=== PATIENT | female | born 1970 | race African-American/Black ===

== ENCOUNTER 2020-11-10 17:12 | Emergency (ER) | payer OTHER ==
[~2020-11-10] VITALS: Ht 170.2 cm; Wt 134.7 kg
--- NOTE | ~2020-11-10 | EMS ---
[address] [address] EMS Patient Care Report Name: MARIA DOLORES MENDEZ Room #: DEP NANDO [place]#: [id number] Admission: 11/10/20 Attend Phys: Discharge: 11/10/20 Date of : 70 Report #: [id number] THIS REPORT FOR: //name// Report Transmitted: 11/12/2020 07:41 EMS Care Summary [facility] Incident [id number] @ 11/10/2020 16:30 Incident Location [facility] [address] [place] [address] Patient MARIA DOLORES MENDEZ Female, 50 Years 1970 Patient Address [address] [place] [address] Patient History Cardiac - Stent,Atrial Fibrillation,Ventricular Tachycardia, Patient Allergies Penicillin allergy,Sulfa,Advair, Patient Medications Nortriptyline, Gabapentin, Eliquis, Amlodipine, Chief Complaint chest pain Disposition Transported No Lights/[place] [facility] Reason Falls Transported To [facility] Narrative S51 and P51 responded to call for fall. S51 and P51 arrived on scene and made pt contact. Pt was sitting in the hallway on the stairs. Pt was A&Ox4 and GCS15. Pt stated she was walking up the stairs when she tripped and fell [address] [address] EMS Patient Care Report Name: MARIA DOLORES MENDEZ Room #: DEP NANDO [place]#: [id number] Admission: 11/10/20 Attend Phys: Discharge: 11/10/20 Date of : 70 Report #: [id number] striking her chest. Pt denies and loss of consciousness, neck or back pain. Pt stated that she had a stent placed approx 9 days ago. Pt stated that she in on blood thinners. Pt chest was assessed and showed no signs of trauma. Pt's vitals were assessed and pt was assisted to the cot under her own power. Pt was secured to the cot with seat belts and loaded into the ambulance. Pt was attached to the monitor and IV access was established with a 20g in the L.AC flushed with 10ml of NS. Pt complained of chest pain that she rated a 6/10 that was constant and sharp in nature. Pt's vitals were all stable besides her BP being elevated. Pt denied any pain anywhere else. 12 Lead showed Sinus Rhythm with no abnormalities. Pt was monitored and reassessed during transport to [place]. Pt care was transferred to [facility] in room 11 with signature. Initial Vitals @17:02GCS: 15,TX Suspected: false @16:46P: 100,GCS: 15,CO: 2,SpO2: 100,TX Suspected: false @16:44P: 96,R: 18,BP: 194/109,Pain: 6/10,GCS: 15,Glucose: 105,SpO2: 100,Revised Trauma: 12, @16:57P: 94,R: 20,BP: 174/100,Pain: 6/10,GCS: 15,CO: 6,SpO2: 97,Revised Trauma: 12, @16:39P: 110,R: 18,BP: 165/115,Pain: 6/10,GCS: 15,SpO2: 100,Revised Trauma: 12, Assessments @16:40MENTAL:Person Oriented,Time Oriented,Place Oriented,Event Oriented,SKIN:HEENT:Head/Face: No Abnormalities,Eyes: No Abnormalities,Neck/Airway: No Abnormalities,LUNG SOUNDS:General: No Abnormalities,ABDOMEN:General: No Abnormalities,PELVIS//GI:No Abnormalities,EXTREMITIES:Left Arm: No Abnormalities,Right Arm: No Abnormalities,Left Leg: No Abnormalities,Right Leg: No Abnormalities,PULSE:NEURO:No Abnormalities,@16:55MENTAL:Event Oriented,Person Oriented,Time Oriented,Place Oriented,SKIN:HEENT:Head/Face: No Abnormalities,LUNG SOUNDS:General: No Abnormalities,Left Upper: No Abnormalities,Right Upper: No Abnormalities,Left Lower: No Abnormalities,Right Lower: No Abnormalities,ABDOMEN:General: No Abnormalities,Left Upper: No Abnormalities,Right Upper: No Abnormalities,Left Lower: No Abnormalities,Right Lower: No Abnormalities,PELVIS//GI:No Abnormalities,EXTREMITIES:Left Arm: No Abnormalities,Right Arm: No Abnormalities,Left Leg: No Abnormalities,Right Leg: No Abnormalities,PULSE:NEURO:No Abnormalities, Impression Injury of Thorax (Upper Chest) Procedures @16:39ALS AssessmentResponse: UnchangedSucceeded@16:50Normal Saline (.9% NaCl) 10cc (20 ga) Site: Antecubital-LeftResponse: UnchangedSucceeded@17:0512-Lead ECG@17:0112-Lead ECG@17:0212-Lead ECG@16:473-Lead ECGResponse: UnchangedSucceeded [address] [address] EMS Patient Care Report Name: MARIA DOLORES MENDEZ Room #: [facility] ER [place]arie[place]#: [id number] Admission: 11/10/20 Attend Phys: Discharge: 11/10/20 Date of : 70 Report #: [id number] Timeline 16:28,Call Received 16:28,Psap Call 16:30,Dispatched 16:32,En Route 16:35,Initial Responder On Scene 16:35,On Scene 16:38,At Patient 16:39,BP: 165/115 M,PULSE: 110,RR: 18 R,SPO2: 100 Ox,ETCO2: ,BG: ,PAIN: 6,GCS: 15, 16:39,ALS Assessment,Response: UnchangedSucceeded, 16:44,BP: 194/109 M,PULSE: 96,RR: 18 R,SPO2: 100 Ox,ETCO2: ,B,PAIN: 6,GCS: 15, 16:46,Depart Scene 16:46,BP: / M,PULSE: 100,RR: R,SPO2: 100 Ox,ETCO2: ,BG: ,PAIN: ,GCS: 15, 16:47,3-Lead ECG,Response: UnchangedSucceeded, 16:50,Normal Saline (.9% NaCl) 10cc 20 ga Site: Antecubital-Left,Response: UnchangedSucceeded, 16:57,BP: 174/100 M,PULSE: 94,RR: 20 R,SPO2: 97 Ox,ETCO2: ,BG: ,PAIN: 6,GCS: 15, 17:01,12-Lead ECG, 17:02,12-Lead ECG, 17:02,BP: / M,PULSE: ,RR: R,SPO2: Ox,ETCO2: ,BG: ,PAIN: ,GCS: 15, 17:05,12-Lead ECG, 17:08,At Destination 17:11,Transfer Patient 17:35,Call Closed Disclaimer v1.1 Copyright 2020 [employer] This EMS Care Summary contains data elements from the applicable legal record (which may be displayed differently). It is designed to provide pertinent information for the following purposes: continuity of care, clinical quality, and state data reporting. The complete legal record is available to ED staff and administrators of the receiving hospital in [employer]'s Patient Tracker. All data is provided "as is."
[2020-11-10 17:36] LABS: ABSOLUTE NEUTROPHILS 3.2 thou/uL (1.4-8.2); BASOPHILS 0.6 % (0.0-2.0); EOSINOPHILS 2.9 % (0.0-3.0); HEMATOCRIT 38.8 % (37.0-47.0); HEMOGLOBIN 12.9 gm/dL (12.0-15.0); LYMPHOCYTES 45.5 % (24.0-44.0); MCHC 33.1 g/dL (28.0-37.0); MCV 87.4 fL (80.0-100.0); MONOCYTES 7.4 % (1.0-8.0); PLATELET COUNT 246 thou/uL (150-400); POLYS 43.6 % (36.0-66.0); RBC 4.44 mil/uL (4.20-5.00); RDW 15.1 % (10.5-14.5); WBC 7.3 thou/uL (4.0-11.0)
[2020-11-10 17:43] LABS: CALCIUM 9.2 mg/dL (8.5-10.1); CREATININE 1.2 mg/dL (0.6-1.0); POTASSIUM 3.9 mmol/L (3.5-5.1)
[2020-11-10 17:47] LABS: APTT 30.4 Seconds (24.5-32.8); INR 1.07; PROTIME 11.6 Seconds (9.3-11.4)
[2020-11-10] MEDS ORDERED: ULTRAM 50MG TAB50 MG PO (18:18)
[2020-11-10 18:44] VITALS: BP 149/84
== END 2020-11-10 18:44 | disposition home or self-care (01) ==
LOC: ER 17:12
PROVIDERS: Emergency Medicine
DX: R07.89 Other chest pain (principal); F17.210 Nicotine dependence, cigarettes, uncomplicated; Z88.0 Allergy status to penicillin; Z88.2 Allergy status to sulfonamides; Z88.8 Allergy status to other drugs, medicaments and biological substances; W10.9XXA Fall (on) (from) unspecified stairs and steps, initial encounter; Y93.89 Activity, other specified; Y92.89 Other specified places as the place of occurrence of the external cause; Y99.8 Other external cause status